=== PATIENT | male | born 1945 | race Caucasian/White ===

== ENCOUNTER 2021-01-28 14:35 | Outpatient (CLI) | payer MEDICARE ==
[~2021-01-28 14:35] MED LIST: ATEN50TA41 PO; DIGO125T85 PO; MAGN400T9 PO; RIVA20TA PO
== END 2021-01-28 23:59 | disposition home or self-care (01) ==
LOC: RAD 14:35 → LAB 14:35 → RAD 23:59
PROVIDERS: ATTEND Internal Medicine Cardiovascular Disease
DX: J98.11 Atelectasis (principal); I48.92 Unspecified atrial flutter
CPT/HCPCS: 71046; 93306